=== PATIENT | male | born 1935 | race Caucasian/White ===

== ENCOUNTER → 2023-06-26 11:04 | Outpatient (REF) | payer OTHER, SELFPAY | LOC: RCS 11:04 | PROVIDERS: ATTENDING PHYSICIAN Family Medicine | DX: Z01.818 Encounter for other preprocedural examination (principal); H02.105 Unspecified ectropion of left lower eyelid; I10 Essential (primary) hypertension | CPT/HCPCS: 93005 ==

== ENCOUNTER → 2023-07-10 15:19 | Outpatient (REF) | payer OTHER, SELFPAY | LOC: RAD 15:19 | PROVIDERS: ATTENDING PHYSICIAN Family Medicine | DX: M79.89 Other specified soft tissue disorders (principal) | CPT/HCPCS: 93971 ==

== ENCOUNTER 2023-07-22 06:14 | Inpatient (IN) | payer OTHER, SELFPAY ==
--- NOTE | 2023-06-27 10:22 | CM ---
Addendum entered by Dagmar France 07/02/23 10:59:
Spoke again with patient several times. He asked about going to a rehab to 'make his more comfortable'. Explained goals for independence with the need for a minimal amount of support. Encouraged patient to speak with his children to see if they
can provide additional support so that his feels more comfortable. he is also concerned about getting in and out of the car because of how tall he is. Discussed option of VN services and reviewed options/PAC data. He selects VN.
Original Note:
Patient is scheduled for an elective R TKR on 07/22/23. Spoke with patient prior to surgery via telephone. Introduced role of Orthopedic Navigator. Patient reports that he lives with his in a two story home. There is one step to enter and he has
a first floor set up. He currently functions independently. He occasionally uses a cane for very long distances. He also has a rolling walker from his prior TKR done at in 2009. He had VN services after his prior TKR but doesn't recall the name
of the agency. PCP is Dr. Jaquan Raza.
Discussed orthopedic program and post surgical plans. Reviewed anticipated length of stay and that goal is for him to return home at discharge. Also reviewed outpatient PT. Patient is in agreement with tentative plan and will go directly to
outpatient PT at [facility]. He will have support from his when he goes home.
Patient will complete online education.
Plan: Orthopedic Navigator will remain available to assist with the care of patient and will reassess discharge needs after surgery.
[2023-07-05 12:12] VITALS: BMI 31.0
[2023-07-05 14:12] LABS: ALT (SGPT) 16 U/L (0-50); AST (SGOT) 21 U/L (17-59); Albumin 4.3 g/dl (3.5-5.0); Alkaline Phosphatase 57 U/L (38-126); Direct Bilirubin 0.3 mg/dl (0.0-0.4); Total Bilirubin 0.8 mg/dl (0.2-1.3); Total Protein 6.7 g/dl (6.3-8.2)
[2023-07-05 14:28] VITALS: BMI 31.0
[2023-07-05 14:46] LABS: Glycohemoglobin (HgbA1c) 5.4 % (4.0-5.6)
[2023-07-22] VITALS (11 sets, daily range): BP systolic 86–176; BP diastolic 55–78; PULSE 71–100; O2SAT 95
[2023-07-22] MEDS: TYLENOL 650 MG PO (08:01)
[2023-07-22] MEDS: CELEBREX 200 MG PO (08:01)
[2023-07-22] MEDS: NORMOSOL-R 1000 IV ×2 (08:07→11:48)
[2023-07-22] MEDS: NORCO 5/325 1 TABLET PO ×2 (11:52→15:16)
[2023-07-22] MEDS: ZESTRIL PO (12:17)
--- NOTE | 2023-07-22 12:31 | PTCARENOTE ---
Pt arrived to 2S in bed. Full assessment completed. R knee aquacel C/D/I, ice applied to the site. B/L LEs with decreased sensation, neurovascular assessment otherwise WDL. IVF infusing per order. Nasal cannula maintained. Bed locked and in the
lowest position, safety maintained. Oriented to room and call moon, family at bedside.
--- NOTE | 2023-07-22 12:32 | W.PN.ORTHO ---
Today's Communication / Plan
-
D/c when clinically stable.
Assessment
.
Distal Motor Intact: Yes
Dressing:
Clean, dry and intact.
Assessment:
R knee OA s/p R TKA w/ Dr Cochran 07/22/23
- s/p L TKA, 2009, by Dr Cochran
DVT prophylaxis - ASA, b/l venous foot pumps
HTN - + parameters - monitor BP
Peripheral neuropathy - consider Gabapentin or Lyrica
Balance difficulties - on fall precautions
BPH - monitor voiding
- Bladder scan/straight cath as needed
- Continue home Finasteride
- Continue home Flomax. Consider increase to BID dosing
Hyperlipidemia
Right lower lobe pulmonary nodule
Chronic dyspnea on exertion
Cholelithiasis, asymptomatic
Cervical degenerative disc disease
Skin cancer, status post recurrent excision
Gout
Ectropion of left eye, awaiting surgical repair
Obesity, BMI 30.9
Plan
.
Surgery / Date: R TKA w/ Dr Cochran 07/22/23
DVT Prophylaxis: Aspirin
Activity:
Out of bed.
PT/OT
Discharge Plan: Home w/ VN
Subjective
.
.:
Patient resting comfortably in his bed.
R knee pain minimal and currently well tolerated.
Denies any new significant complaints.
Vital Signs and Labs
.
Vital Signs and Labs:
Temp Pulse Resp BP Pulse Ox
97.5 F 89 16 152/71 94
07/22/23 07:53 07/22/23 07:53 07/22/23 07:53 07/22/23 07:53 07/22/23 07:53
Physical Exam
-
HEENT: No pallor, cyanosis, or jaundice. Throat clear.
NECK: Supple. No JVD.
RESPIRATORY: Lungs clear to auscultation.
CVS: S1, S2 normal. RRR.�
ABDOMEN: Soft, non-tender. No distension. Obese.
EXTREMITIES: Strength equal, no calf pain with palpation/dorsiflexion. Calves soft.
NURSE EXAMINER: AOx3. No focal deficits. 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
[2023-07-22] MEDS: COMPAZINE 5 MG PO ×3 (12:47→21:03)
[2023-07-22] MEDS: PROTONIX 40 MG PO (12:47)
[2023-07-22] MEDS: ASPIRIN 325 MG PO (17:04)
[2023-07-22] MEDS: ANCEF 5 IV (17:04)
[2023-07-22] MEDS: BACTROBAN 2% OINTMENT 1 APPLIC NASAL (20:58)
[2023-07-22] MEDS: COLACE 100 MG PO (21:02)
[2023-07-22] MEDS: SENOKOT 17.1999999999999993 MG PO (21:02)
[2023-07-22] MEDS: DECADRON 4 MG PO (21:02)
[2023-07-22] MEDS: FLOMAX 0.400000000000000022 MG PO (21:03)
[2023-07-22] MEDS: LIPITOR 20 MG PO (21:03)
[2023-07-22] MEDS: PROSCAR 5 MG PO (21:03)
[2023-07-23] MEDS: ANCEF 5 IV (00:24)
[2023-07-23 03:10] VITALS: BP 155/75
[2023-07-23 07:25] VITALS: BP 150/75
[2023-07-23] MEDS: CELEBREX 200 MG PO (08:17)
[2023-07-23] MEDS: COMPAZINE 5 MG PO (08:17)
[2023-07-23] MEDS: ZESTRIL 10 MG PO (08:17)
[2023-07-23] MEDS: PROTONIX 40 MG PO (08:17)
[2023-07-23] MEDS: SENOKOT 17.1999999999999993 MG PO (08:18)
[2023-07-23] MEDS: COLACE 100 MG PO (08:18)
[2023-07-23] MEDS: BACTROBAN 2% OINTMENT 1 APPLIC NASAL (08:18)
[2023-07-23] MEDS: ASPIRIN 325 MG PO (08:18)
[2023-07-23] MEDS: DECADRON 4 MG PO (08:19)
[2023-07-23] MEDS: NORCO 5/325 2 TABLET PO (08:20)
--- NOTE | 2023-07-23 08:51 | CM ---
Addendum entered by Dagmar France 07/23/23 11:06:
Patient did well in therapy. Discharge plans again reviewed with patient, his and son. They have no concerns at this time.
Original Note:
Reviewed chart and held rounds with PT, OT and nursing. Patient admitted as planned for elective R TKR. Met with patient at bedside. Confirmed information previously obtained for assessment. Also discussed discharge plans. The plan is for patient to
return home at discharge. He will have support from his when he goes home. Reviewed VN services including start of care (tentatively 07/23), services to be ordered (PT, SN) and frequency/duration of services. Options list provided and PAC data
reviewed. Patient selects VN.
Patient has a rolling walker and a cane at home.
VN referral was completed and sent to [facility] through [employer] with request for start of care on 07/23. Confirmation received of their ability to accept case. patient registration clerk to fax discharge instructions to [facility] when complete.
Patient will use [facility] pharmacy for discharge prescriptions.
Discharge plans were reviewed with patient's and daughter on 07/21.
--- NOTE | 2023-07-23 09:32 | W.PN.ORTHO ---
Today's Communication / Plan
-
Await PT and OT recs.
D/c later today if remaining clinically stable.
Assessment
.
Distal Motor Intact: Yes
Dressing:
Trace old incisional bleeding. Dressing otherwise C/D/I.
Assessment:
R knee OA s/p R TKA w/ Dr Cochran 07/22/23
- s/p L TKA, 2009, by Dr Cochran
DVT prophylaxis - ASA, b/l venous foot pumps
HTN - + parameters - BPs overall stable
Peripheral neuropathy - consider Gabapentin or Lyrica
Balance difficulties - on fall precautions
BPH - voiding appropriately w/ resumption of home Finasteride and Tamsulosin
Hyperlipidemia
Right lower lobe pulmonary nodule
Chronic dyspnea on exertion
Cholelithiasis, asymptomatic
Cervical degenerative disc disease
Skin cancer, status post recurrent excision
Gout
Ectropion of left eye, awaiting surgical repair
Obesity, BMI 30.9
Plan
.
Surgery / Date: R TKA w/ Dr Cochran 07/22/23
DVT Prophylaxis: Aspirin
Activity:
Out of bed.
PT/OT
Discharge Plan: Home w/ VN
Subjective
.
.:
Patient overall resting comfortably in his chair.
Mild right thigh pain reported 2* tourniquet use in OR - worse than knee pain - lidocaine patches ordered.
Denies any new significant complaints.
Eager for potential d/c today.
Vital Signs and Labs
.
Vital Signs and Labs:
Temp Pulse Resp BP Pulse Ox
97.7 F 97 20 150/76 98
07/23/23 07:25 07/23/23 07:25 07/23/23 07:25 07/23/23 08:17 07/23/23 07:25
Non-invasive Hgb result: 12.4
Physical Exam
-
HEENT: No pallor, cyanosis, or jaundice. Throat clear.
NECK: Supple. No JVD.
RESPIRATORY: Lungs clear to auscultation.
CVS: S1, S2 normal. RRR.
ABDOMEN: Soft, non-tender. No distension. Obese.
EXTREMITIES: Expected R knee post-surgical edema. Strength equal, no calf pain with palpation/dorsiflexion. Calves soft.
BUTTONHOLE FACER: AOx3. No focal deficits. pumping plant operator grossly intact
[2023-07-23] MEDS: LIDOCAINE 4% PATCH 2 PATCH TOPICAL (09:48)
[2023-07-23 09:50] VITALS: BP 135/64; PULSE 81; O2SAT 98
[2023-07-23 10:40] VITALS: BP 136/71; BP 142/72; PULSE 100; PULSE 122
--- NOTE | 2023-07-23 10:54 | W.DS.TRANS ---
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
-
Discharge Instructions:
Sleep Apnea Risk Intermediate
Discharge Diagnosis/Procedures R knee OA s/p R TKA w/ Dr Cochran 07/22/23
Diet Regular
Activity As tolerated,With Walker
Driving Restrictions Not until seen by your Dr
Bathing Restrictions OK to Shower
Other Services VN,PT
Wound Care Dressing to be removed 1 week post-surgery.
Kathrine to be removed at 2 week follow-up
appointment with surgeon's office.
Instructions:
Stand-Alone Forms: Total Hip/Knee Replacement D/C
Changes to Home Medications: Yes
Discharge Medications:
DC Medications w/original date entered in [employer]
finasteride 5 mg tablet 5 mg PO HS 04/27/09
simvastatin 40 mg tablet 40 mg PO HS 06/27/23
tamsulosin 0.4 mg capsule 0.4 mg PO HS 06/27/23
mupirocin 2 % topical ointment 1 applic intranasal BID #1 tube 07/05/23
acetaminophen 325 mg tablet 650 mg (2 x 325 mg) PO Q4HPRN PRN mild pain #60 tabs 07/23/23
aspirin 325 mg tablet 325 mg PO DAILY #30 tabs 07/23/23
celecoxib 200 mg capsule 200 mg PO DAILY #14 caps 07/23/23
dexamethasone 4 mg tablet 4 mg PO BID #5 tabs 07/23/23
docusate sodium 100 mg capsule 100 mg PO BID #30 caps 07/23/23
hydrocodone 5 mg-acetaminophen 325 mg tablet 1 - 2 tab PO Q6H PRN moderate-severe pain #30 tabs 07/23/23
lidocaine 4 % topical patch 2 patch topical DAILY #30 ea 07/23/23
lisinopril 10 mg tablet 10 mg PO DAILY #0 tabs 07/23/23
pantoprazole 40 mg tablet,delayed release 40 mg PO DAILY #30 tabs 07/23/23
prochlorperazine maleate 5 mg tablet 5 mg PO TID PRN nausea and vomiting #30 tabs 07/23/23
sennosides 8.6 mg tablet (Senna Laxative) 17.2 mg (2 x 8.6 mg) PO BID #30 tabs 07/23/23
Home Medication Changes
acetaminophen 325 mg tablet 650 mg (2 x 325 mg) PO Q4HPRN PRN mild pain #60 tabs 07/23/23
aspirin 325 mg tablet 325 mg PO DAILY #30 tabs 07/23/23
celecoxib 200 mg capsule 200 mg PO DAILY #14 caps 07/23/23
dexamethasone 4 mg tablet 4 mg PO BID #5 tabs 07/23/23
docusate sodium 100 mg capsule 100 mg PO BID #30 caps 07/23/23
hydrocodone 5 mg-acetaminophen 325 mg tablet 1 - 2 tab PO Q6H PRN moderate-severe pain #30 tabs 07/23/23
lidocaine 4 % topical patch 2 patch topical DAILY #30 ea 07/23/23
pantoprazole 40 mg tablet,delayed release 40 mg PO DAILY #30 tabs 07/23/23
prochlorperazine maleate 5 mg tablet 5 mg PO TID PRN nausea and vomiting #30 tabs 07/23/23
sennosides 8.6 mg tablet (Senna Laxative) 17.2 mg (2 x 8.6 mg) PO BID #30 tabs 07/23/23
Pending Results: No
[2023-07-23 11:35] VITALS: BP 123/56
== END 2023-07-23 11:57 | disposition home health service (06) | DRG 470 ==
LOC: 2 SOUTH 06:14
PROVIDERS: Physician Assistant; ADMITTING PHYSICIAN Specialist; FAMILY PHYSICIAN Family Medicine
PROC: 0SRC0J9 Replacement of Right Knee Joint with Synthetic Substitute, Cemented, Open Approach (ICD-10-PCS; 2023-07-22)
DX: M17.11 Unilateral primary osteoarthritis, right knee (principal); I10 Essential (primary) hypertension; G62.9 Polyneuropathy, unspecified; N40.0 Benign prostatic hyperplasia without lower urinary tract symptoms; E78.5 Hyperlipidemia, unspecified; E66.9 Obesity, unspecified; Z68.30 Body mass index [BMI] 30.0-30.9, adult
CPT/HCPCS: 36415; 73560; 80076; 83036; 86850; 86900; 86901; 87070; 97110; 97116; 97162; 97166; 97530; 97535; C1713; C1776

== ENCOUNTER → 2024-02-05 06:40 | Outpatient (REF) | payer OTHER, SELFPAY | LOC: RAD 06:40 | PROVIDERS: ATTENDING PHYSICIAN Family Medicine | DX: R29.898 Other symptoms and signs involving the musculoskeletal system (principal); R09.89 Other specified symptoms and signs involving the circulatory and respiratory systems | CPT/HCPCS: 93922 ==